=== PATIENT | female | born 1995 | race African-American/Black ===

== ENCOUNTER 2016-06-29 09:41 | Emergency (ER) | payer SELFPAY ==
[2016-06-29 09:40] LABS: BASOPHIL% 0.5 % (0-2.5); EOSINOPHIL% 0.6 % (0.0-7.0); HEMATOCRIT 44.6 % (35.0-45.0); HEMOGLOBIN 14.7 gm/dL (12.0-16.0); LYMPHOCYTE% 44.9 % (17.0-45.0); MEAN CELL VOLUME 82.5 FL (83-96); MEAN CORPUSCULAR HEMOGLOBIN 27.3 PG (28-34); MEAN PLATELET VOLUME 8.2 FL (6.5-11.5); MONOCYTE# 0.4 X10e3 (0-1.0); MONOCYTE% 8.2 % (3.0-12.0); NEUTROPHIL# 2.1 X10e3 (1.5-7.1); NEUTROPHIL% 45.8 % (40-75); PLATELET COUNT 158 X10e3 (140-420); RED BLOOD COUNT 5.41 X10e (3.90-5.30); RED CELL DISTRIBUTION WIDTH 13.8 % (11.0-15.5); WHITE BLOOD COUNT 4.5 X10e3 (4.0-10.5)
[~2016-06-29 09:41] MED LIST: ABILIFY10 MG PO; ANTIDEPRESSANT; BIRTH CONTROL PILL PO; DESYREL50 MG PO; HYDROCODON-ACE1 EAC7 PO; HYDROCODON-ACE1 EAC9 PO; LAMICTAL25 MG PO; LAMOTRIGINE25 M1 PO; ONDANSETRON HCL4 M1 PO; REMERON15 MG PO; ZOFRAN ODT4 MG PO; ZOVIRAX800 MG PO; [UNRECOGNIZED DRUG - OTHER] PO
[2016-06-29 09:42] LABS: DIFF IND NO
[2016-06-29 10:01] LABS: ALBUMIN SERUM 4.1 g/dL (3.5-5.0); ALKALINE PHOSPHATASE 74 U/L (32-92); ALT (SGPT) 12 U/L (10-40); AST (SGOT) 20 U/L (10-42); BILIRUBIN,TOTAL 0.6 mg/dL (0.2-2.0); BLOOD UREA NITROGEN 6 mg/dL (9-23); CALCIUM SERUM 9.4 mg/dL (8.4-10.2); CARBON DIOXIDE 25 mmol/L (22-31); CHLORIDE 103 mmol/L (100-111); GLOM FILT RATE Estimated ABOVE60 mL/min (>60); GLUCOSE FASTING 99 mg/dL (70-110); POTASSIUM 3.5 mmol/L (3.5-5.1); PROTEIN TOTAL SERUM 8.3 g/dL (6.0-8.3); SODIUM 139 mmol/L (135-145)
[2016-06-29 10:14] LABS: URINE SOURCE CLEAN CATCH
[2016-06-29 10:22] LABS: URINE BILIRUBIN NEG (NEG); URINE BLOOD 2+ (NEG); URINE COLOR YELLOW; URINE GLUCOSE NEG (NEG); URINE KETONE NEG (NEG); URINE LEUKOCYTE ESTERASE 1+ (NEG); URINE NITRATE NEG (NEG); URINE PH 6.5 (5-8); URINE PROTEIN NEG (NEG); URINE SPECIFIC GRAVITY 1.008 (1.003-1.035); URINE UROBILINOGEN 0.2 MG/DL (NEG)
[2016-06-29 10:25] LABS: CULTURE INDICATED? YES; URINE BACTERIA AUWI NEG (NEGATIVE); URINE SQUAMOUS EPITHELIAL CELL MOD /[HPF]
[2016-06-29 10:29] LABS: INFLUENZA A POS (NEG); INFLUENZA B NEG (NEG)
[2016-06-29 10:48] LABS: AMPHETAMINE NEG (NEG); BARBITURATES NEG (NEG); BENZODIAZEPINES NEG (NEG); COCAINE NEG (NEG); MARIJUANA POS (NEG); OPIATES NEG (NEG); TRICYCLIC ANTIDEPRESSANTS NEG (NEG); U METHADONE NEG (NEG)
== END 2016-06-29 14:29 | disposition home or self-care (01) ==
LOC: CED 09:41
PROVIDERS: Physician Assistant Medical
DX: J11.1 Influenza due to unidentified influenza virus with other respiratory manifestations (principal)
CPT/HCPCS: 36415; 80053; 80307; 81003; 84703; 85025; 87086; 87804; 96360; 96361; 99284

== ENCOUNTER 2016-08-31 11:17 | Emergency (ER) | payer OTHER | END 2016-08-31 11:53 | disposition home or self-care (01) | LOC: CFTX 11:17 → CED 11:17 → CFTX 11:39 | DX: K64.4 Residual hemorrhoidal skin tags (principal); F32.9 Major depressive disorder, single episode, unspecified; Z90.49 Acquired absence of other specified parts of digestive tract | CPT/HCPCS: 99283 ==